=== PATIENT | male | born 1960 | race Caucasian/White ===

== ENCOUNTER → 2023-10-18 06:37 | Day surgery (SDC) | payer OTHER, SELFPAY | LOC: GI 06:37 | PROVIDERS: ATTENDING PHYSICIAN Internal Medicine | DX: Z12.11 Encounter for screening for malignant neoplasm of colon (principal); K63.5 Polyp of colon; K57.30 Diverticulosis of large intestine without perforation or abscess without bleeding; R21 Rash and other nonspecific skin eruption; Z86.010 Personal history of colon polyps | CPT/HCPCS: 45385; 45380; 88305 ==